=== PATIENT | female | born 1980 | race American Indian/Alaskan Native ===

== ENCOUNTER 2021-03-01 20:13 | Outpatient (CLI) | payer MEDICAID ==
[2021-03-01 20:42] VITALS: BP 120/69
[2021-03-01] MEDS ORDERED: LACTATED RINGERS 1,000 ML IV ONE (20:54)
[2021-03-01] MEDS: TERBUTALINE 1 MG/1 ML INJ SUB-Q PRN ×2 (21:28→22:04)
[2021-03-01 22:10] LABS: Bacteria,Urine 2+ /HPF (Negative); Bilirubin,Urine NEG (Negative); Blood,Urine NEG (Negative); Color,Urine Yellow (Yellow); Mucus,Urine FEW /HPF; Urobilinogen,Urine < 2.0 mg/dL (<2.0)
[2021-03-01] MEDS ORDERED: NITROFURANTOIN MONOHYD/M-CRYST 100 MG CAP PO ONE (22:21)
== END 2021-03-01 22:40 | disposition home or self-care (01) ==
LOC: TRG 20:13 → APU 20:14 → TRG 22:40
PROVIDERS: ATTEND Obstetrics & Gynecology
DX: O62.9 Abnormality of forces of labor, unspecified (principal); O09.523 Supervision of elderly multigravida, third trimester; Z3A.34 34 weeks gestation of pregnancy; Z79.899 Other long term (current) drug therapy
CPT/HCPCS: 59025; 81001; 87086; 96360; 96372; J3105; J7120

== ENCOUNTER 2021-03-15 06:38 | Outpatient (CLI) | payer MEDICAID ==
[2021-03-15] MEDS ORDERED: LACTATED RINGERS 500 ML IV ONE (09:00)
[2021-03-15] MEDS ORDERED: LACTATED RINGERS 1,000 ML ONE (13:41)
--- NOTE | 2021-03-15 13:53 | History and Physical Report ---
History of Present Illness Date of examination: 03/15/21 Date of admission: 03/15/2021 Chief complaint: Labor Pains History of present illness: Early entry to care, care complicated by AMA, placental lakes, and hx of PTD, co-managed with [facility]. Had Cerclage placed and removed on 03/12/2021. 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) Family/Genetic History: none Social history: no significant social history, - Obstetrical History Expected Date of Delivery: 04/08/21 Actual Gestation: 36 Week(s) 4 Day(s) : 6 Para: 3 Hx # Term Pregnancies: 3 Number of Pregnancies: 1 Spontaneous Abortions: 1 Number of Living Children: 3 #2 Infant Gender: Female (2008) year: 2,012 Birthweight: 3.714 kg Method of Delivery: Vaginal Gestational age at delivery: 37 #1 Gender: Female year: 2,010 Birthweight: 3.118 kg Method of Delivery: Vaginal Gestational age at delivery: 36 #3 Infant Gender: Male year: 2,014 Birthweight: 3.175 kg Method of Delivery: Vaginal Gestational age at delivery: 37 #4 Infant Gender: Male year: 2,019 Birthweight: 3.203 kg Method of Delivery: Vaginal Gestational age at delivery: 37 Medications and Allergies Allergies Allergy/AdvReac Type Severity Reaction Status Date / Time No Known Allergies Allergy Unverified 03/01/21 20:54 Home Medications Medication Instructions Recorded Confirmed Last Taken Type Nitrofurantoin [place]/M-Cryst 100 mg PO Q12HR 7 Days #14 capsule 03/01/21 Unknown Rx [Macrobid CAP] Review of Systems All systems: negative - Vital Signs Vital signs: Vital Signs Pulse BP Pulse Ox 107 H 122/70 97 03/15/21 07:08 03/15/21 07:08 03/15/21 07:08 Temp Pulse Resp BP Pulse Ox 99.3 F 94 H 16 129/71 98 03/15/21 13:19 03/15/21 13:46 03/15/21 07:22 03/15/21 13:19 03/15/21 13:46 - Physical Exam Breasts: Positive: normal Cardiovascular: Regular rate Lungs: Positive: Clear to auscultation, Normal air movement Abdomen: Positive: normal appearance, soft, normal bowel sounds Genitourinary (Female): Positive: normal external genitalia, normal perenium Vagina: Positive: normal moisture Uterus: Positive: enlarged Anus/Rectum: Positive: normal perianal skin Extremities: Positive: normal - Obstetrical FHR: category 1 Uterine Contraction Monitor Mode: External Cervical Dilatation: 4 (vtx, intact) Cervical Effacement Percentage: 70 station: -3 Uterine Contraction Pattern: Irregular Uterine Tone Measurement Phase: Resting Uterine Contraction Intensity: Mild Results All other labs normal. Assessment and Plan A: IUP @ 36 4/7 Weeks Category I Tracing Advanced Cervical Dilation GBS Negative P: Admit to L&D Per Routine Orders Consult Dr. Perry: Recommends Expectant Management
[2021-03-15] MEDS ORDERED: NALOXONE 0.4 MG/1 ML INJ IV PRN (14:30)
[2021-03-15] MEDS ORDERED: ONDANSETRON 4 MG/2 ML INJ IV PRN (14:30)
[2021-03-15 14:55] LABS: Hematocrit 37.2 % (30.3-42.9); Hemoglobin 12.3 gm/dl (10.1-14.3); Mean Corpuscular HGB Conc 33 % (30-34); Mean Corpuscular Volume 89 fl (79-97); Platelet Count 165 K/mm3 (140-440); Red Blood Count 4.17 M/mm3 (3.65-5.03); Red Cell Distribution Width 17.1 % (13.2-15.2)
[2021-03-15] MEDS ORDERED: ACETAMINOPHEN 325 MG TAB PO PRN (15:00)
[2021-03-15] MEDS ORDERED: BUTORPHANOL 2 MG/1 ML INJ IV PRN (15:00)
[2021-03-15] MEDS ORDERED: hydrOXYzine PAMOATE 25 MG CAP PO ONE (21:00)
[2021-03-15] MEDS ORDERED: MORPHINE 2 MG/1 ML INJ IM ONE (21:00)
--- NOTE | 2021-03-15 21:18 | Progress Note ---
Subjective - Subjective Date of service: 03/15/21 Interval history: PM rounds at 36.4 weeks Painful contractions At bedside, on my exam Cervix 4cm/long/-3 (soft,mid-position) [place]: Q 3 minutes contractions Plan: CFM Morphine/Vistaril re-check cervix in AM Katherine Perry MD Objective - Vital Signs Vital Signs: Vital Signs - 12hr 03/15/21 03/15/21 03/15/21 09:18 09:23 09:28 Temperature Pulse Rate 89 94 H 101 H Blood Pressure Blood Pressure [Right] O2 Sat by Pulse 96 96 98 Oximetry O2 Sat by Pulse Oximetry [ Bilateral Throughout] 03/15/21 03/15/21 03/15/21 09:33 09:38 09:44 Temperature Pulse Rate 98 H 88 113 H Blood Pressure Blood Pressure [Right] O2 Sat by Pulse 98 98 92 Oximetry O2 Sat by Pulse Oximetry [ Bilateral Throughout] 03/15/21 03/15/21 03/15/21 09:49 09:54 09:59 Temperature Pulse Rate 95 H 88 95 H Blood Pressure Blood Pressure [Right] O2 Sat by Pulse 98 98 97 Oximetry O2 Sat by Pulse Oximetry [ Bilateral Throughout] 03/15/21 03/15/21 03/15/21 10:04 10:09 10:14 Temperature Pulse Rate 98 H 95 H 93 H Blood Pressure Blood Pressure [Right] O2 Sat by Pulse 98 97 97 Oximetry O2 Sat by Pulse Oximetry [ Bilateral Throughout] 03/15/21 03/15/21 03/15/21 10:19 10:24 10:29 Temperature Pulse Rate 105 H 95 H 97 H Blood Pressure Blood Pressure [Right] O2 Sat by Pulse 98 97 97 Oximetry O2 Sat by Pulse Oximetry [ Bilateral Throughout] 03/15/21 03/15/21 03/15/21 10:34 10:39 10:44 Temperature Pulse Rate 92 H 92 H 89 Blood Pressure Blood Pressure [Right] O2 Sat by Pulse 96 96 96 Oximetry O2 Sat by Pulse Oximetry [ Bilateral Throughout] 03/15/21 03/15/21 03/15/21 10:48 10:49 10:54 Temperature Pulse Rate 100 H 89 96 H Blood Pressure Blood Pressure [Right] O2 Sat by Pulse 94 96 94 Oximetry O2 Sat by Pulse Oximetry [ Bilateral Throughout] 03/15/21 03/15/2121 10:59 11:07 11:12 Temperature Pulse Rate 97 H 114 H 89 Blood Pressure Blood Pressure [Right] O2 Sat by Pulse 98 93 97 Oximetry O2 Sat by Pulse Oximetry [ Bilateral Throughout] 03/15/21 03/15/21 03/15/21 11:17 11:22 11:27 Temperature Pulse Rate 91 H 90 98 H Blood Pressure Blood Pressure [Right] O2 Sat by Pulse 97 98 97 Oximetry O2 Sat by Pulse Oximetry [ Bilateral Throughout] 03/15/21 03/15/21 03/15/21 11:32 11:37 11:42 Temperature Pulse Rate 92 H 105 H 99 H Blood Pressure Blood Pressure [Right] O2 Sat by Pulse 97 96 96 Oximetry O2 Sat by Pulse Oximetry [ Bilateral Throughout] 03/15/21 03/15/21 03/15/21 11:47 11:52 11:57 Temperature Pulse Rate 88 110 H 103 H Blood Pressure Blood Pressure [Right] O2 Sat by Pulse 97 98 98 Oximetry O2 Sat by Pulse Oximetry [ Bilateral Throughout] 03/15/21 03/15/21 03/15/21 12:02 12:07 12:12 Temperature Pulse Rate 101 H 106 H 90 Blood Pressure Blood Pressure [Right] O2 Sat by Pulse 99 97 97 Oximetry O2 Sat by Pulse Oximetry [ Bilateral Throughout] 03/15/21 03/15/21 03/15/21 12:17 12:22 12:27 Temperature Pulse Rate 97 H 104 H 115 H Blood Pressure Blood Pressure [Right] O2 Sat by Pulse 97 96 97 Oximetry O2 Sat by Pulse Oximetry [ Bilateral Throughout] 03/15/21 03/15/21 03/15/21 12:32 13:19 13:21 Temperature 99.3 F Pulse Rate 93 H 97 H 99 H Blood Pressure 129/71 Blood Pressure 129/71 [Right] O2 Sat by Pulse 98 97 97 Oximetry O2 Sat by Pulse Oximetry [ Bilateral Throughout] 03/15/21 03/15/21 03/15/21 13:25 13:31 13:32 Temperature Pulse Rate 101 H 107 H Blood Pressure Blood Pressure [Right] O2 Sat by Pulse 96 97 Oximetry O2 Sat by Pulse 98 Oximetry [ Bilateral Throughout] 03/15/21 03/15/21 03/15/21 13:36 13:41 13:46 Temperature Pulse Rate 95 H 107 H 94 H Blood Pressure Blood Pressure [Right] O2 Sat by Pulse 98 97 98 Oximetry O2 Sat by Pulse Oximetry [ Bilateral Throughout] 03/15/21 03/15/21 03/15/21 13:50 13:55 13:56 Temperature Pulse Rate 100 H 95 H 98 H Blood Pressure 115/59 Blood Pressure [Right] O2 Sat by Pulse 97 98 Oximetry O2 Sat by Pulse Oximetry [ Bilateral Throughout] 03/15/21 03/15/21 03/15/21 14:00 14:05 14:08 Temperature Pulse Rate 97 H 100 H 100 H Blood Pressure Blood Pressure [Right] O2 Sat by Pulse 97 95 94 Oximetry O2 Sat by Pulse Oximetry [ Bilateral Throughout] 03/15/21 03/15/21 03/15/21 14:11 14:16 14:21 Temperature Pulse Rate 99 H 103 H 94 H Blood Pressure Blood Pressure [Right] O2 Sat by Pulse 96 97 100 Oximetry O2 Sat by Pulse Oximetry [ Bilateral Throughout] 03/15/21 03/15/21 03/15/21 14:24 14:26 14:31 Temperature Pulse Rate 101 H 98 H 98 H Blood Pressure 112/59 Blood Pressure [Right] O2 Sat by Pulse 93 97 97 Oximetry O2 Sat by Pulse Oximetry [ Bilateral Throughout] 03/15/21 03/15/21 03/15/21 14:36 14:40 14:46 Temperature Pulse Rate 109 H 90 98 H Blood Pressure Blood Pressure [Right] O2 Sat by Pulse 96 97 97 Oximetry O2 Sat by Pulse Oximetry [ Bilateral Throughout] 03/15/21 03/15/21 03/15/21 14:51 14:56 14:58 Temperature Pulse Rate 85 76 87 Blood Pressure Blood Pressure [Right] O2 Sat by Pulse 97 96 94 Oximetry O2 Sat by Pulse Oximetry [ Bilateral Throughout] 03/15/21 03/15/21 03/15/21 15:00 15:01 15:03 Temperature Pulse Rate 77 77 76 Blood Pressure 125/64 Blood Pressure [Right] O2 Sat by Pulse 95 94 Oximetry O2 Sat by Pulse Oximetry [ Bilateral Throughout] 03/15/21 03/15/21 03/15/21 15:06 15:09 15:11 Temperature Pulse Rate 81 75 73 Blood Pressure Blood Pressure [Right] O2 Sat by Pulse 95 94 94 Oximetry O2 Sat by Pulse Oximetry [ Bilateral Throughout] 03/15/21 03/15/21 03/15/21 15:15 15:16 15:21 Temperature Pulse Rate 84 79 78 Blood Pressure Blood Pressure [Right] O2 Sat by Pulse 94 93 96 Oximetry O2 Sat by Pulse Oximetry [ Bilateral Throughout] 03/15/21 03/15/21 03/15/21 15:24 15:26 15:31 Temperature Pulse Rate 85 76 77 Blood Pressure 126/67 Blood Pressure [Right] O2 Sat by Pulse 97 96 Oximetry O2 Sat by Pulse Oximetry [ Bilateral Throughout] 03/15/21 03/15/21 03/15/21 15:36 15:41 15:46 Temperature Pulse Rate 87 89 99 H Blood Pressure Blood Pressure [Right] O2 Sat by Pulse 96 97 98 Oximetry O2 Sat by Pulse Oximetry [ Bilateral Throughout] 03/15/21 03/15/21 03/15/21 15:51 15:54 15:56 Temperature Pulse Rate 89 93 H 86 Blood Pressure 124/58 Blood Pressure [Right] O2 Sat by Pulse 98 98 Oximetry O2 Sat by Pulse Oximetry [ Bilateral Throughout] 03/15/21 03/15/21 03/15/21 16:01 16:06 16:11 Temperature Pulse Rate 78 88 84 Blood Pressure Blood Pressure [Right] O2 Sat by Pulse 98 97 98 Oximetry O2 Sat by Pulse Oximetry [ Bilateral Throughout] 03/15/21 03/15/21 03/15/21 16:16 16:21 16:25 Temperature Pulse Rate 83 77 82 Blood Pressure 119/60 Blood Pressure [Right] O2 Sat by Pulse 98 98 Oximetry O2 Sat by Pulse Oximetry [ Bilateral Throughout] 03/15/21 03/15/21 03/15/21 16:26 16:31 16:36 Temperature Pulse Rate 85 84 90 Blood Pressure Blood Pressure [Right] O2 Sat by Pulse 98 98 99 Oximetry O2 Sat by Pulse Oximetry [ Bilateral Throughout] 03/15/21 03/15/21 03/15/21 16:41 16:46 16:51 Temperature Pulse Rate 96 H 105 H 97 H Blood Pressure Blood Pressure [Right] O2 Sat by Pulse 97 98 98 Oximetry O2 Sat by Pulse Oximetry [ Bilateral Throughout] 03/15/21 03/15/21 03/15/21 16:53 16:56 17:01 Temperature Pulse Rate 88 92 H 100 H Blood Pressure 121/65 Blood Pressure [Right] O2 Sat by Pulse 99 97 Oximetry O2 Sat by Pulse Oximetry [ Bilateral Throughout] 03/15/21 03/15/21 03/15/21 17:06 17:11 17:16 Temperature Pulse Rate 81 84 90 Blood Pressure Blood Pressure [Right] O2 Sat by Pulse 97 98 98 Oximetry O2 Sat by Pulse Oximetry [ Bilateral Throughout] 03/15/21 03/15/21 03/15/21 17:21 17:25 17:26 Temperature Pulse Rate 91 H 86 93 H Blood Pressure 125/65 Blood Pressure [Right] O2 Sat by Pulse 98 98 Oximetry O2 Sat by Pulse Oximetry [ Bilateral Throughout] 03/15/21 03/15/21 03/15/21 17:31 17:36 17:41 Temperature Pulse Rate 103 H 102 H 102 H Blood Pressure Blood Pressure [Right] O2 Sat by Pulse 98 98 98 Oximetry O2 Sat by Pulse Oximetry [ Bilateral Throughout] 03/15/21 03/15/21 03/15/21 17:46 17:51 17:54 Temperature Pulse Rate 92 H 87 82 Blood Pressure 117/60 Blood Pressure [Right] O2 Sat by Pulse 98 98 Oximetry O2 Sat by Pulse Oximetry [ Bilateral Throughout] 03/15/21 03/15/21 03/15/21 17:56 18:01 18:12 Temperature 98.3 F Pulse Rate 86 113 H Blood Pressure Blood Pressure [Right] O2 Sat by Pulse 97 98 Oximetry O2 Sat by Pulse Oximetry [ Bilateral Throughout] 03/15/21 03/15/21 03/15/21 18:19 18:24 18:29 Temperature Pulse Rate 89 110 H 92 H Blood Pressure Blood Pressure [Right] O2 Sat by Pulse 98 99 96 Oximetry O2 Sat by Pulse Oximetry [ Bilateral Throughout] 03/15/21 03/15/21 03/15/21 18:34 18:39 18:44 Temperature Pulse Rate 95 H 89 95 H Blood Pressure Blood Pressure [Right] O2 Sat by Pulse 97 96 97 Oximetry O2 Sat by Pulse Oximetry [ Bilateral Throughout] 03/15/21 03/15/21 03/15/21 18:49 18:54 18:59 Temperature Pulse Rate 96 H 91 H 100 H Blood Pressure 111/63 Blood Pressure [Right] O2 Sat by Pulse 97 98 99 Oximetry O2 Sat by Pulse Oximetry [ Bilateral Throughout] 03/15/21 03/15/21 03/15/21 19:04 19:09 19:14 Temperature Pulse Rate 87 93 H 90 Blood Pressure Blood Pressure [Right] O2 Sat by Pulse 98 97 97 Oximetry O2 Sat by Pulse Oximetry [ Bilateral Throughout] 03/15/21 03/15/21 03/15/21 19:19 19:24 19:29 Temperature Pulse Rate 87 82 91 H Blood Pressure 105/57 Blood Pressure [Right] O2 Sat by Pulse 96 98 97 Oximetry O2 Sat by Pulse Oximetry [ Bilateral Throughout] 03/15/21 03/15/21 03/15/21 19:34 19:39 19:44 Temperature Pulse Rate 98 H 89 86 Blood Pressure Blood Pressure [Right] O2 Sat by Pulse 97 99 97 Oximetry O2 Sat by Pulse Oximetry [ Bilateral Throughout] 03/15/21 03/15/21 03/15/21 19:49 19:54 19:59 Temperature Pulse Rate 99 H 84 83 Blood Pressure 116/61 Blood Pressure [Right] O2 Sat by Pulse 98 98 97 Oximetry O2 Sat by Pulse Oximetry [ Bilateral Throughout] 03/15/21 03/15/21 03/15/21 20:04 20:09 20:14 Temperature Pulse Rate 94 H 88 108 H Blood Pressure Blood Pressure [Right] O2 Sat by Pulse 98 98 98 Oximetry O2 Sat by Pulse Oximetry [ Bilateral Throughout] 03/15/21 03/15/21 03/15/21 20:16 20:19 20:28 Temperature Pulse Rate 101 H 111 H Blood Pressure Blood Pressure [Right] O2 Sat by Pulse 98 99 Oximetry O2 Sat by Pulse 98 Oximetry [ Bilateral Throughout] 03/15/21 03/15/21 03/15/21 20:33 20:38 20:42 Temperature Pulse Rate 88 94 H 97 H Blood Pressure Blood Pressure [Right] O2 Sat by Pulse 97 97 97 Oximetry O2 Sat by Pulse Oximetry [ Bilateral Throughout] 03/15/21 03/15/21 03/15/21 20:48 20:53 20:55 Temperature Pulse Rate 83 86 85 Blood Pressure 112/64 Blood Pressure [Right] O2 Sat by Pulse 98 99 Oximetry O2 Sat by Pulse Oximetry [ Bilateral Throughout] 03/15/21 03/15/21 03/15/21 20:58 21:03 21:08 Temperature Pulse Rate 95 H 88 85 Blood Pressure Blood Pressure [Right] O2 Sat by Pulse 98 98 98 Oximetry O2 Sat by Pulse Oximetry [ Bilateral Throughout] 03/15/21 21:13 Temperature Pulse Rate 94 H Blood Pressure Blood Pressure [Right] O2 Sat by Pulse 99 Oximetry O2 Sat by Pulse Oximetry [ Bilateral Throughout] - Labs Labs: Abnormal Labs 03/15/21 13:52 WBC 12.3 H RDW 17.1 H Laboratory Results - last 24 hr 03/15/21 03/15/21 13:52 13:52 WBC 12.3 H RBC 4.17 Hgb 12.3 Hct 37.2 MCV 89 MCH 30 MCHC 33 RDW 17.1 H Plt Count 165 Blood Type O POSITIVE Antibody Screen Negative
[2021-03-15] MEDS: LACTATED RINGERS 1,000 ML IV SCH (21:22)
[2021-03-15] MEDS ORDERED: MINERAL OIL 30 ML ORAL LIQD PO PRN (22:00)
[2021-03-16] MEDS ORDERED: fentaNYL 100 MCG/2 ML INJ IV NR (07:28)
--- NOTE | 2021-03-16 07:28 | Event Note ---
Date: 03/16/21 no cervical change but patient had large piece of cerclage removed during my exam. SHe continues to have contrcting Q2-3 minutes Plan for [facility] to evaluate patient prior to discharge to home Katherine Perry MD
[2021-03-16] MEDS: LACTATED RINGERS 1,000 ML IV SCH (07:30)
[2021-03-16 14:25] VITALS: BP 105/61
[2021-03-16] MEDS ORDERED: fentaNYL 100 MCG/2 ML INJ IV ONE (15:00)
== END 2021-03-16 14:50 | disposition still patient (30) ==
LOC: TRG 06:38 → APU 06:39 → LD 13:01 → TRG 03-16 14:50
DX: Z20.822 Contact with and (suspected) exposure to COVID-19 (principal); Z34.93 Encounter for supervision of normal pregnancy, unspecified, third trimester; Z3A.36 36 weeks gestation of pregnancy
CPT/HCPCS: 36415; 85027; 86850; 86900; 86901; 87086; J0595; J2270; J3010; J7120; Q0177; U0003

== ENCOUNTER 2021-03-31 11:30 | Inpatient (IN) | payer MEDICAID ==
[2021-03-31] MEDS ORDERED: LOPERAMIDE 2 MG CAP PO PRN (20:54)
[2021-03-31] MEDS ORDERED: NALOXONE 0.4 MG/1 ML INJ IV PRN (20:54)
[2021-03-31] MEDS ORDERED: LIDOCAINE (2%) 20 MG/1 ML VIAL 20 ML MDV INFILTRATI ONE (20:54)
[2021-03-31] MEDS ORDERED: NalbUPHINE 10 MG/1 ML INJ IV PRN ×2 (20:54→21:58)
[2021-03-31] MEDS ORDERED: MINERAL OIL 30 ML ORAL LIQD PO PRN (20:54)
[2021-03-31] MEDS ORDERED: miSOPROStol 200 MCG TAB PR PRN (20:54)
[2021-03-31] MEDS ORDERED: ONDANSETRON 4 MG/2 ML INJ IV PRN ×3 (20:54→22:44)
[2021-03-31] MEDS ORDERED: ePHEDrine SULFATE 50 MG/1 ML INJ IV PRN ×2 (20:54→21:58)
[2021-03-31] MEDS ORDERED: OXYTOCIN 10 UNIT/1 ML INJ IM PRN (20:54)
[2021-03-31] MEDS ORDERED: METHYLERGONOVINE MALEATE 0.2 MG/ML VIAL IM PRN (20:54)
[2021-03-31] MEDS ORDERED: fentaNYL 100 MCG/2 ML INJ IV PRN (20:54)
[2021-03-31] MEDS ORDERED: CARBOPROST TROMETHAMINE 250 MCG/1 ML INJ IM PRN (20:54)
[2021-03-31] MEDS ORDERED: BUTORPHANOL 2 MG/1 ML INJ IV PRN (20:54)
[2021-03-31] MEDS ORDERED: ACETAMINOPHEN 325 MG TAB PO PRN ×2 (20:54→22:44)
[2021-03-31] MEDS ORDERED: TERBUTALINE 1 MG/1 ML INJ SUB-Q PRN (20:54)
[2021-03-31] MEDS ORDERED: OXYTOCIN DRIP 30 UNITS/500 ML BAG IV SCH (21:00)
[2021-03-31] MEDS ORDERED: LACTATED RINGERS 1,000 ML IV SCH (21:00)
[2021-03-31 21:35] LABS: Hematocrit 39.8 % (30.3-42.9); Hemoglobin 13.2 gm/dl (10.1-14.3); Mean Corpuscular HGB Conc 33 % (30-34); Mean Corpuscular Volume 88 fl (79-97); Platelet Count 206 K/mm3 (140-440); Red Blood Count 4.53 M/mm3 (3.65-5.03); Red Cell Distribution Width 16.3 % (13.2-15.2)
[2021-03-31] MEDS ORDERED: NALOXONE 2 MG/2 ML INJ IV PRN (21:58)
[2021-03-31] MEDS ORDERED: LACTATED RINGERS 250 ML IV SOLN IV ONE (21:58)
[2021-03-31] MEDS ORDERED: diphenhydrAMINE 50 MG/ML VIAL IV PRN (21:58)
[2021-03-31] MEDS ORDERED: fentaNYL-BUPIV 2 MCG/ML-0.125% 200 MCG/100 ML BAG EPIDURAL SCH (22:00)
[2021-03-31] MEDS ORDERED: MORPHINE 2 MG/1 ML INJ ONE (22:21)
[2021-03-31] MEDS ORDERED: MORPHINE 2 MG/1 ML INJ IM ONE (22:23)
[2021-03-31] MEDS ORDERED: diphenhydrAMINE 25 MG CAP PO PRN (22:44)
[2021-03-31] MEDS ORDERED: HYDROcodone/ACETAMINOPHEN 5-325 MG TAB PO PRN (22:44)
[2021-03-31] MEDS ORDERED: PROMETHAZINE 25 MG RECT SUPP PR PRN (22:44)
[2021-03-31] MEDS ORDERED: WITCH HAZEL/ GLYCERIN PAD TP PRN (22:44)
[2021-03-31] MEDS ORDERED: LANOLIN/ZINC/DIMETHICONE (LANSINOH) 7 GM TP PRN (22:44)
[2021-03-31] MEDS ORDERED: PROMETHAZINE 25 MG TAB PO PRN (22:44)
[2021-03-31] MEDS ORDERED: MAGNESIUM HYDROXIDE (MOM) ORAL LIQD UDC PO PRN (22:44)
--- NOTE | 2021-03-31 22:44 | History and Physical Report ---
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 Social history: no significant social history - Obstetrical History Expected Date of Delivery: 04/08/21 Actual Gestation: 38 Week(s) 6 Day(s) : 7 Para: 4 Medications and Allergies Allergies Allergy/AdvReac Type Severity Reaction Status Date / Time No Known Allergies Allergy Unverified 03/01/21 20:54 Home Medications Medication Instructions Recorded Confirmed Last Taken Type Aspirin [Aspirin BABY CHEW TAB] 1 tab PO DAILY 03/15/21 03/31/21 1 Day Ago History ~03/30/21 Vit-Fe Fumar-FA [ 1 tab PO QDAY 03/15/21 03/31/21 1 Day Ago History Vitamin] ~03/30/21 Active Meds: Active Medications Acetaminophen (Acetaminophen 325 Mg Tab) 650 mg PO Q4H PRN PRN Reason: Pain, Mild (1-3) Butorphanol Tartrate (Butorphanol 2 Mg/1 Ml Inj) 2 mg IV Q2H PRN PRN Reason: Pain , Severe (7-10) Carboprost Tromethamine (Carboprost Tromethamine 250 Mcg/1 Ml Inj) 250 mcg IM ONCE PRN PRN Reason: Uterine Bleeding Diphenhydramine HCl (Diphenhydramine 50 Mg/Ml Vial) 12.5 mg IV Q2H PRN PRN Reason: Itching Ephedrine Sulfate (Ephedrine Sulfate 50 Mg/1 Ml Inj) 10 mg IV Q2M PRN PRN Reason: Hypotension Fentanyl (Fentanyl 100 Mcg/2 Ml Inj) 100 mcg IV Q2H PRN PRN Reason: Pain,Severe (7-10) LABOR PAIN Lactated Ringer's (Lactated Ringers) 1,000 mls @ 125 mls/hr IV DIRECT ANAHI Oxytocin/Sodium Chloride (Pitocin/Ns 30 Unit/500ml) 30 units in 500 mls @ 40 mls/hr IV TITR ANAHI; Protocol Fentanyl/Bupivacaine/Sodium Chlor (Fentanyl-Bupiv 2 Mcg/Ml-0.125%) 200 mcg in 100 mls @ 12 mls/hr EPIDURAL TITR ANAHI; Protocol Loperamide HCl (Loperamide 2 Mg Cap) 2 mg PO ONCE PRN PRN Reason: give with Hemabate Methylergonovine Maleate (Methylergonovine Maleate 0.2 Mg/Ml Vial) 0.2 mg IM ONCE PRN PRN Reason: Uterine Bleeding Mineral Oil (Mineral Oil 30 Ml Oral Liqd) 30 ml PO QHS PRN PRN Reason: Constipation Misoprostol (Misoprostol 200 Mcg Tab) 800 mcg VA ONCE PRN PRN Reason: Uterine Bleeding Nalbuphine HCl (Nalbuphine 10 Mg/1 Ml Inj) 10 mg IV Q2H PRN PRN Reason: Pain, Moderate (4-6) Nalbuphine HCl (Nalbuphine 10 Mg/1 Ml Inj) 2.5 mg IV Q2H PRN PRN Reason: Itching Naloxone HCl (Naloxone 0.4 Mg/1 Ml Inj) 0.1 mg IV Q2MIN PRN PRN Reason: Res Rate </= 8 or 02 SAT < 92% Naloxone HCl (Naloxone 2 Mg/2 Ml Inj) 0.2 mg IV Q5M PRN PRN Reason: Respiratory sedation Ondansetron HCl (Ondansetron 4 Mg/2 Ml Inj) 4 mg IV Q8H PRN PRN Reason: Nausea And Vomiting Oxytocin (Oxytocin 10 Unit/1 Ml Inj) 10 unit IM ONCE PRN PRN Reason: Uterine Bleeding Terbutaline Sulfate (Terbutaline 1 Mg/1 Ml Inj) 0.25 mg SUB-Q ONCE PRN PRN Reason: Hyperstimulation/Hypertonicity Review of Systems All systems: negative (contractions, srom) - Vital Signs Vital signs: Vital Signs Pulse BP 90 132/82 03/31/21 20:31 03/31/21 20:31 Temp Pulse Resp BP Pulse Ox 98.4 F 84 123/65 96 03/31/21 20:32 03/31/21 21:58 03/31/21 21:41 03/31/21 21:58 - Physical Exam Breasts: Positive: deferred Cardiovascular: Regular rate Lungs: Positive: Clear to auscultation Abdomen: Positive: normal appearance, soft, normal bowel sounds Genitourinary (Female): Positive: normal external genitalia, normal perenium Vulva: both: normal Vagina: Positive: normal moisture Uterus: Positive: enlarged Anus/Rectum: Positive: normal perianal skin Extremities: Positive: normal Deep Tendon Reflex Grade: Normal +2 - Obstetrical FHR: category 1 Cervical Dilatation: 5 Cervical Effacement Percentage: 80 station: -3 Uterine Contraction Pattern: Regular Results Result Diagrams: 03/31/21 21:10 Abnormal lab results 03/31/21 Range/Units 21:10 WBC 12.1 H (4.5-11.0) K/mm3 RDW 16.3 H (13.2-15.2) % All other labs normal. Assessment and Plan monitor labor curve gbs prophylaxis cfm expect alfonzo Perry MD
--- NOTE | 2021-03-31 22:56 | Procedure Note ---
OB Delivery Note - Delivery Date of Delivery: 03/31/21 - Vaginal Delivery position: OA Intrapartum events: precipitous labor- <3hr Delivery induction: none Delivery augmentation: rupture of membranes Delivery monitor: external FHT, external uterine Route of delivery: Delivery placenta: spontaneous Delivery cord: 3 umbilical vessels Episiotomy: midline Delivery laceration: 3rd degree Delivery repair: vicryl Anesthesia: none Delivery comments: Patient pushed to deliver a viable male over a midline episiotomy with weight and 8/9. Position SANDRA, no nuchal cord. Spontaneous cry at delivery. Delivery of the anterior shoulder atraumatic, remainder of delivery uncomplicated. Cord clamped cut and baby handed to waiting JEREMY team. Spontaneous delivery of an intact placenta with three-vessel cord. Inspection of the perineum cervix and vagina revealed no additional lacerations. Midline episiotomy with third degree repaired with vicryl in the usual fashion. Firm f undus, EBL 350. All sponge needle and instrument counts correct x2. Mom and baby stable to . no complications Katherine Perry MD
--- NOTE | 2021-04-01 04:46 | Progress Note ---
Subjective - Subjective Date of service: 04/01/21 Interval history: PPD#1 midline episiotomy with third degree extension: no issue VB minimal good social support baby doing well plan for routine PP care D/C to home tomorrow Katherine Perry MD Patient reports: appetite normal, voiding normally, pain well controlled, ambulating normally Objective - Vital Signs Latest vital signs: Vital Signs Temp Pulse Resp BP BP Pulse Ox Pulse Ox 04/01/21 00:30 98.7 F 82 20 130/69 98 98 04/01/21 00:03 90 99 03/31/21 23:58 82 98 03/31/21 23:53 86 98 03/31/21 23:48 87 97 03/31/21 23:44 87 130/69 03/31/21 23:43 86 98 03/31/21 23:38 82 99 03/31/21 23:33 86 99 03/31/21 23:28 88 99 03/31/21 23:23 85 98 03/31/21 23:18 91 H 99 03/31/21 23:14 85 116/60 03/31/21 23:13 84 99 03/31/21 23:10 98.8 F 99 03/31/21 22:40 90 132/62 03/31/21 21:58 84 96 03/31/21 21:54 106 H 94 03/31/21 21:53 110 H 97 03/31/21 21:48 99 H 98 03/31/21 21:43 98 H 98 03/31/21 21:41 102 H 123/65 03/31/21 21:38 107 H 97 03/31/21 21:33 113 H 95 03/31/21 21:31 102 H 94 03/31/21 21:28 71 98 03/31/21 20:32 98.4 F 90 132/82 03/31/21 20:31 90 132/82 Intake and Output 03/31/21 03/31/21 04/01/21 15:59 23:59 07:59 Output Total 800 Balance -800 Output: Urine 800 Void 800 Other: Total, Output Amount 800 # Voids Void 1 Weight 95.708 kg Estimated Blood Loss 350 - Exam Breasts: Present: deferred Cardiovascular: Present: Regular rate Lungs: Present: Clear to auscultation Abdomen: Present: normal appearance, soft, normal bowel sounds Uterus: Present: fundal height below umbilicus Extremities: Present: normal Deep Tendon Reflex Grade: Normal but brisk +3 - Labs Labs: Abnormal lab results 03/31/21 Range/Units 21:10 WBC 12.1 H (4.5-11.0) K/mm3 RDW 16.3 H (13.2-15.2) %
--- NOTE | 2021-04-01 04:47 | Discharge Summary ---
Providers - Providers Date of Admission: 03/31/21 20:21 Date of discharge: 04/02/21 Attending physician: KIRT GOMEZ MD Primary care physician: KIRT GOMEZ MD Hospitalization Delivery: Episiotomy: midline Laceration: 3rd degree Other procedures: none complications: none Discharge diagnosis: IUP at term delivered Condition at discharge: Stable Disposition: 01 HOME / SELF CARE / HOMELESS Plan - Discharge Medications Prescriptions: Ibuprofen [Motrin] 600 mg PO Q8H PRN #60 tablet PRN Reason: Pain - Provider Discharge Summary Activity: no sex for 6 weeks Diet: routine Instructions: routine Additional instructions: [] Smoking cessation referral if applicable(refer to patient education folder for contact #) [] Refer to [facility]'s [facility] Booklet Call your doctor immediately for: * Fever > 100.5 * Heavy vaginal bleeding ( >1 pad per hour) * Severe persistent headache * Shortness of breath * Reddened, hot, painful area to leg or breast * Drainage or odor from incision. * Keep incision clean and dry at all times and follow doctor's instructions regarding bathing/showering - Follow up plan Follow up: KIRT GOMEZ MD [Primary Care Provider] - 6 Weeks
[2021-04-01] MEDS: IBUPROFEN 600 MG TAB PO SCH ×4 (04:49→23:54)
[2021-04-01 11:32] LABS: Hematocrit 35.4 % (30.3-42.9); Hemoglobin 11.9 gm/dl (10.1-14.3)
[2021-04-02] MEDS: IBUPROFEN 600 MG TAB PO SCH ×2 (06:25→11:17)
[2021-04-02 12:08] VITALS: BP 120/77
== END 2021-04-02 12:35 | disposition home or self-care (01) | DRG 775 ==
LOC: APU 20:21 → LD 21:25 → OB 04-01 00:27
PROVIDERS: ADMIT Obstetrics & Gynecology; ATTEND Obstetrics & Gynecology
PROC: 10E0XZZ Delivery of Products of Conception, External Approach (ICD-10-PCS; principal; 2021-03-31)
PROC: 0DQR0ZZ Repair Anal Sphincter, Open Approach (ICD-10-PCS; 2021-03-31)
PROC: 0W8NXZZ Division of Female Perineum, External Approach (ICD-10-PCS; 2021-03-31)
DX: O62.3 Precipitate labor (principal); Z20.822 Contact with and (suspected) exposure to COVID-19; Z3A.38 38 weeks gestation of pregnancy; Z37.0 Single live birth; O70.20 Third degree perineal laceration during delivery, unspecified
CPT/HCPCS: 36415; 59025; 85014; 85018; 85027; 86592; 86850; 86900; 86901; 88307; 96360; G0378; J2270; J2590; J7120; U0003

== ENCOUNTER 2021-06-18 08:12 | Day surgery (SDC) | payer OTHER, MEDICAID ==
[2021-06-18] MEDS ORDERED: LACTATED RINGERS 1,000 ML ONE (08:44)
[2021-06-18] MEDS ORDERED: HYDROmorphone 1 MG/1 ML INJ ONE (09:10)
[2021-06-18] MEDS ORDERED: propofoL 200 MG/20 ML VIAL IV ONE (09:11)
[2021-06-18] MEDS ORDERED: LIDOCAINE MPF (2%) 20 MG/1 ML VIAL 5 ML ONE (09:11)
[2021-06-18] MEDS ORDERED: ROCURONIUM 50 MG/5 ML INJ IV ONE (09:12)
--- NOTE | 2021-06-18 09:25 | Anesthesia Day of Surgery ---
Anesthesia Day of Surgery - Day of Surgery Patient Examined: Yes Patient H&P Reviewed: Yes Patient is NPO: Yes
--- NOTE | 2021-06-18 09:25 | Anesthesia Consultation ---
Anesthesia Consult and Med Hx Date of service: 06/18/21 - Airway Anesthetic Teeth Evaluation: Good (multiple fillings) ROM Head & Neck: Adequate Mental/Hyoid Distance: Adequate Mallampati Class: Class I Intubation Access Assessment: Good - Pre-Operative Health Status ASA Pre-Surgery Classification: ASA1 Proposed Anesthetic Plan: General - Pulmonary Hx Asthma: No COPD: No Hx Pneumonia: No - Cardiovascular System Hx Hypertension: Yes (2019) Hx Heart Murmur: Yes (Resolved) - Central Nervous System Hx Seizures: No Hx Psychiatric Problems: No - Endocrine Hx Renal Disease: No Hx End Stage Renal Disease: No Hx Hypothyroidism: No Hx Hyperthyroidism: No - Hematic Hx Anemia: No Hx Sickle Cell Disease: No - Other Systems Hx Alcohol Use: No Hx Cancer: No
[2021-06-18] MEDS ORDERED: ceFAZolin/STERILE WATER 2 GM/20 ML SYRINGE IV NR (09:30)
[2021-06-18] MEDS ORDERED: LACTATED RINGERS 1,000 ML IV SCH (09:30)
[2021-06-18] MEDS ORDERED: ceFAZolin/Water 2 GM/20 ML 2 GM/20 ML SYRINGE IV ONE (09:34)
[2021-06-18] MEDS ORDERED: dexAMETHasone 20 MG/5 ML VIAL ONE (09:56)
[2021-06-18] MEDS ORDERED: SCOPOLAMINE TRANSDERMAL PATCH 72 HR TD NR (10:00)
[2021-06-18] MEDS ORDERED: MIDAZOLAM 2 MG/2 ML INJ IV NR (10:00)
[2021-06-18] MEDS ORDERED: FAMOTIDINE 20 MG/2 ML INJ IV NR (10:00)
[2021-06-18] MEDS ORDERED: SODIUM CHLORIDE 0.9% IRR 1,500 ML BOTTLE IR ONE (10:11)
[2021-06-18] MEDS ORDERED: BUPIVACAINE/PF (0.25%) 2.5 MG/ML 30 ML VIAL INFILTRATI ONE ×3 (10:11→10:47)
[2021-06-18] MEDS ORDERED: KETOROLAC 30 MG/1 ML INJ ONE (10:34)
[2021-06-18] MEDS ORDERED: NEOSTIGMINE 10MG/10 ML INJ MDV ONE (10:34)
[2021-06-18] MEDS ORDERED: ONDANSETRON 4 MG/2 ML INJ ONE (10:34)
[2021-06-18] MEDS ORDERED: GLYCOPYRROLATE 0.4 MG/2 ML INJ ONE (10:34)
--- NOTE | 2021-06-18 11:20 | Procedure Note ---
Date of procedure: 06/18/21 Pre-op diagnosis: multiparous, desires permanent sterilization; h/o umbilical hernia repair Post-op diagnosis: same Procedure: Mini-lap with bilateral salpingectomy After risks, benefits and alternatives were discussed, pt signed tubal consents and was taken to the OR via stretcher. Pt was given general anesthesia, prepped in usual sterile fashion after sepulveda cath placed without difficulty Time out done and preop abx given per SCIP Transverse incision done 3cm above symphysis pubic in her natural fold and extended 4cm and taken sharply to the rectus fascia. The fascia incised in the mid-line and extended to 6cm, rectus muscle superiorly from fascia and peritoneal cavity entered bluntly. Pt placed in trendelenburg position and moist lap x1 placed to keep bowel away. Left tube identified and followed to it's fimbriated end and then avascular portion of mesosalpinx entered and distal tubal segment with fimbriae excised and free ends doubly ligated with 0-vicryl suture at each end. In a similar manner the right distal tube identified and excised and free ends ligated. Excellent hemostasis The sponge removed and peritoneum closed anteriorly, then the rectus muscle reapproximated and 0-vicryl in a continuous fashion. Fascia closed from left to right side using 0-vicryl continuously. Excellent hemostasis remains. Local anesthetic given using marcaine 0.25%, subcutaneous fat reapproximated with 3-0 vicryl continuously and skin closed subcutaneously using 4-0 monocryl. Steristrips and pressure dressing placed. Sponge, lap, instrument and needle correct x2. Sepulveda cath removed. Pt extubated and taken to RR stable EBL: minimal Urine:200cc Intake: 400cc crystalloids Findings: normal size uterine fundus, and bilateral normal ovaries with clear follicles and normal bilateral tubes Anesthesia: CRISTA Surgeon: BENJAMIN ERWIN Estimated blood loss: minimal Pathology: list (right and left fallopian tubes with fimbriae) Specimen disposition: to lab Condition: stable Disposition: same day
[2021-06-18] MEDS ORDERED: oxyCODONE /ACETAMINOPHEN 5-325MG TAB PO ONE (13:09)
[2021-06-18 13:37] VITALS: BP 117/80
--- NOTE | 2021-06-18 13:50 | Post Anesthesia Evaluation ---
- Post Anesthesia Evaluation Patient Participated: Yes Airway Patent: Yes Stable Respiratory Function: Yes Nausea/Vomiting: No Temp > 96.8F: Yes Pain Manageable: Yes Adequeate Hydration: Yes Anesthesia Complications: No Block Receding Appropriately: Not Applicable Patient on Ventilator: No
--- NOTE | 2021-06-18 15:43 | Discharge Summary ---
Providers - Providers Date of discharge: 06/18/21 Attending physician: BENJAMIN ERWIN Primary care physician: PACKAGING INSPECTOR Hospitalization Procedure: other (Mini-lap with bilateral salpingectomy) Hospital course: Pt admitted for same day surgery mini-lap salpingectomy and same done uncomplicated and pt discharged home on the same day. Condition at discharge: Good Disposition: 01 HOME / SELF CARE / HOMELESS - Discharge Diagnoses (1) Status post bilateral salpingectomy Status: Acute (2) Multiparous Status: Acute (3) Unwanted fertility Status: Acute Plan - Discharge Medications Prescriptions: Ibuprofen [Motrin] 800 mg PO Q8HR PRN 21 Days #40 tablet PRN Reason: Pain, Moderate (4-6) oxyCODONE /ACETAMINOPHEN [Percocet 5/325] 1 tab PO Q4HR PRN 21 Days #30 tab PRN Reason: Pain , Severe (7-10) - Provider Discharge Summary Activity: no sex for 6 weeks, no heavy lifting 4 weeks Diet: routine Instructions: routine Additional instructions: [] Smoking cessation referral if applicable(refer to patient education folder for contact #) [] Refer to [facility]'s [facility] Booklet Call your doctor immediately for: * Fever > 100.5 * Heavy vaginal bleeding ( >1 pad per hour) * Severe persistent headache * Shortness of breath * Reddened, hot, painful area to leg or breast * Drainage or odor from incision. * Keep incision clean and dry at all times and follow doctor's instructions regarding bathing/showering - Follow up plan Follow up: BENJAMIN ERWIN MD [Staff Physician] - 7 Days PRIMARY CARE, [Primary Care Provider] - 7 Days Forms: [facility]
== END 2021-06-18 13:30 | disposition home or self-care (01) ==
LOC: OR 08:12
PROVIDERS: ATTEND Obstetrics & Gynecology
DX: Z30.2 Encounter for sterilization (principal); Z64.1 Problems related to multiparity; I10 Essential (primary) hypertension; Z79.899 Other long term (current) drug therapy; Z98.890 Other specified postprocedural states
CPT/HCPCS: 58670; 81025; 88302; J0690; J1100; J1170; J1815; J1885; J2250; J2405; J2704; J2710; J3490; J7120